=== PATIENT | female | born 1955 | race Asian ===

== ENCOUNTER 2025-02-07 05:53 | Day surgery (SDC) | payer MEDICARE ==
[2025-02-06 09:36] VITALS: BMI 24.0
[~2025-02-07 05:53] MED LIST: EPINEPHrine 0.3 MG in Ophthalmic Irrigation Solution 500 ML IRR SCH
[2025-02-07] MEDS ORDERED: Cyclopentolate 1% Opth Drop 2 ML BOT ONE (06:05)
[2025-02-07] MEDS ORDERED: PROPOFOL 20 ML ONE (07:07)
[2025-02-07] MEDS ORDERED: Lidocaine 1% PF 5 ML VIAL ONE ×2 (07:09→07:55)
[2025-02-07] MEDS ORDERED: Lidocaine 4% PF 5 ML AMP ONE (07:55)
[2025-02-07] MEDS ORDERED: Maxitrol 0.1% Opth Oint 3.5 GM TUBE ONE (07:55)
[2025-02-07] MEDS ORDERED: CEFAZOLIN 1 GM VIAL ONE (07:55)
== END 2025-02-07 09:08 | disposition home or self-care (01) ==
LOC: SDC 05:53
PROVIDERS: ATTEND Ophthalmology Retina Specialist
PROC: 08T43ZZ Resection of Right Vitreous, Percutaneous Approach (ICD-10-PCS; principal; 2025-02-07)
PROC: 08NE3ZZ Release Right Retina, Percutaneous Approach (ICD-10-PCS; 2025-02-07)
DX: H35.371 Puckering of macula, right eye (principal); H33.311 Horseshoe tear of retina without detachment, right eye; Z98.49 Cataract extraction status, unspecified eye; Z96.1 Presence of intraocular lens
CPT/HCPCS: 67041; J0166; J2704; J3010; J0690; J3301; J3490

== ENCOUNTER → 2025-03-02 | Day surgery (SDC) | payer MEDICARE ==
[~2025-03-02] MED LIST changes: +Acetaminophen 500 MG TAB ONE; +CEFAZOLIN 1 GM VIAL ONE; +Cyclopentolate 1% Opth Drop 2 ML BOT ONE; +Lidocaine 1% PF 5 ML VIAL ONE; +Lidocaine 4% PF 5 ML AMP ONE; +Maxitrol 0.1% Opth Oint 3.5 GM TUBE ONE; +PROPOFOL 20 ML ONE; +fentaNYL PF 100 MCG/2 ML SYRINGE ONE
== END ==
LOC: SDC 14:30
PROVIDERS: ATTEND Ophthalmology Retina Specialist
PROC: 08T43ZZ Resection of Right Vitreous, Percutaneous Approach (ICD-10-PCS; principal; 2025-03-02)
DX: H33.021 Retinal detachment with multiple breaks, right eye (principal); Z98.49 Cataract extraction status, unspecified eye; Z96.1 Presence of intraocular lens
CPT/HCPCS: 67025; 67108; J0166; J0690; J2250; J2704; J3301; J3490